=== PATIENT | female | born 1995 | race Two or more races ===

== ENCOUNTER → 2020-08-20 | Outpatient (CLI) | payer OTHER | END | disposition home or self-care (01) | LOC: RAD 10:48 | PROVIDERS: ATTEND Specialist | DX: O20.0 Threatened abortion (principal); N83.201 Unspecified ovarian cyst, right side | CPT/HCPCS: 76801 ==

== ENCOUNTER → 2020-09-08 | Outpatient (CLI) | payer OTHER | END | disposition home or self-care (01) | LOC: RAD 08:58 | PROVIDERS: ATTEND Specialist | DX: O34.81 Maternal care for other abnormalities of pelvic organs, first trimester (principal); N83.291 Other ovarian cyst, right side; O00.90 Unspecified ectopic pregnancy without intrauterine pregnancy; Z3A.01 Less than 8 weeks gestation of pregnancy | CPT/HCPCS: 76801 ==